=== PATIENT | male | born 1985 | race African-American/Black ===

== ENCOUNTER 2018-06-01 05:11 | Emergency (ER) | payer MEDICARE, MEDICAID ==
[~2018-06-01] VITALS: Ht 167.6 cm; Wt 72.5 kg
[~2018-06-01 05:11] MED LIST: PHEN50TA
[2018-06-01 06:48] LABS: BASOPHILS % 0.8 % (0.0-2.0); EOSINOPHILS % 3.5 % (0.0-5.0); HEMATOCRIT. 45.7 % (42.0-52.0); HEMOGLOBIN. 15.4 g/dL (14.0-18.0); MEAN CORPUSCULAR HEMOGLOBIN 29.5 pg (28.0-32.0); MEAN CORPUSCULAR VOLUME 87.9 fL (80.0-94.0); MEAN PLATELET VOLUME 8.9 fl (7.4-10.4); NEUTROPHILS % 48.7 % (40.0-76.0); PLATELET 176 x1000/uL (130-400); RED CELL DISTRIBUTION WIDTH 13.8 % (11.6-14.6)
[2018-06-01 06:50] LABS: CHLORIDE 110 mEq/L (98-107)
[2018-06-01 06:54] LABS: PARTIAL THROMBOPLASTIN TIME 26.5 sec (23.4-31.0); PROTHROMBIN TIME 9.6 sec (9.1-11.1)
[2018-06-01 07:08] VITALS: BP 113/79
== END 2018-06-01 07:10 | disposition home or self-care (01) ==
LOC: ER 05:11
DX: R04.2 Hemoptysis (principal); F12.10 Cannabis abuse, uncomplicated; F17.290 Nicotine dependence, other tobacco product, uncomplicated
CPT/HCPCS: 36415; 71045; 80048; 99284; 99406

== ENCOUNTER 2019-02-19 04:32 | Emergency (ER) | payer MEDICAID, MEDICARE ==
[~2019-02-19] VITALS: Ht 172.7 cm; Wt 78.0 kg
[2019-02-19 04:39] VITALS: BP 127/76
== END 2019-02-19 07:27 | disposition left against medical advice (07) ==
LOC: ER 04:53
DX: Z53.21 Procedure and treatment not carried out due to patient leaving prior to being seen by health care provider (principal)

== ENCOUNTER 2019-03-29 10:00 | Emergency (ER) | payer MEDICARE ==
[~2019-03-29] VITALS: Ht 177.8 cm; Wt 77.0 kg
[2019-03-29] MEDS: KETOROLAC 15MG/ML VIAL IV ONE (11:51)
[2019-03-29 11:55] VITALS: BP 122/75
== END 2019-03-29 12:00 | disposition left against medical advice (07) ==
LOC: ER 10:00
DX: L02.91 Cutaneous abscess, unspecified (principal); G40.909 Epilepsy, unspecified, not intractable, without status epilepticus; F12.10 Cannabis abuse, uncomplicated
CPT/HCPCS: 99281

== ENCOUNTER 2020-01-28 01:59 | Emergency (ER) | payer MEDICARE ==
[~2020-01-28] VITALS: Ht 167.6 cm; Wt 82.0 kg
[2020-01-28 02:03] VITALS: BP 135/68
[2020-01-28] MEDS ORDERED: DIPHENHYDRAMINE 25MG CAPSULE PO ONE (02:45)
== END 2020-01-28 03:14 | disposition home or self-care (01) ==
LOC: ER 01:59
DX: S50.862A Insect bite (nonvenomous) of left forearm, initial encounter (principal); L03.114 Cellulitis of left upper limb; G40.909 Epilepsy, unspecified, not intractable, without status epilepticus; F12.10 Cannabis abuse, uncomplicated; W57.XXXA Bitten or stung by nonvenomous insect and other nonvenomous arthropods, initial encounter; Y93.89 Activity, other specified; Y92.018 Other place in single-family (private) house as the place of occurrence of the external cause
CPT/HCPCS: 99283; Q0163

== ENCOUNTER 2021-07-16 21:07 | Emergency (ER) | payer MEDICARE ==
[~2021-07-16] VITALS: Ht 170.2 cm; Wt 75.0 kg
[2021-07-16 22:25] LABS: CLARITY URINE CLEAR (CLEAR); COLOR URINE YELLOW (YELLOW); KETONES URINE TRACE (NEGATIVE); LEUKOCYTE ESTERASE URINE 2+ (NEGATIVE); NITRITE URINE NEGATIVE (NEGATIVE); OCCULT BLOOD URINE 3+ (NEGATIVE); PH URINE 6.5 (4.5-8.0); PROTEIN URINE 1+ (NEGATIVE); SPECIFIC GRAVITY URINE 1.027 (1.005-1.030)
[2021-07-17] MEDS ORDERED: CIPR500T5 MT (00:01)
[2021-07-17 00:13] VITALS: BP 123/74
[2021-07-20 04:08] LABS: NEISSERIA GONORRHOEAE NAA Negative (Negative)
== END 2021-07-17 00:14 | disposition home or self-care (01) ==
LOC: ER 21:07
DX: N39.0 Urinary tract infection, site not specified (principal); R31.0 Gross hematuria; G40.909 Epilepsy, unspecified, not intractable, without status epilepticus; Z79.899 Other long term (current) drug therapy
CPT/HCPCS: 81003; 87491; 87591; 99283